=== PATIENT | female | born 1930 | race Two or more races ===

== ENCOUNTER 2016-10-29 15:08 | Outpatient (CLI) | payer MEDICARE, MEDICAID ==
[~2016-10-29 15:08] MED LIST: BARIUM SULFATE 148 GM SUSP.RECON PO ONE; BARIUM SULFATE 240 ML ORAL.SUSP PO ONE
== END 2016-10-29 23:59 | disposition home or self-care (01) ==
LOC: RAD 15:08
DX: R13.10 Dysphagia, unspecified (principal)
CPT/HCPCS: 74230; 92611